=== PATIENT | male | born 1995 | race Caucasian/White ===

== ENCOUNTER 2018-06-10 08:52 | Emergency (ER) | payer SELFPAY ==
[2018-06-10 09:08] VITALS: BP 129/73
--- NOTE | 2018-06-10 11:06 | Emergency Department Report ---
ED Rash HPI - HPI Chief Complaint: Pain General Stated Complaint: RIGHT FOOT PAIN and RASH Time Seen by Provider: 06/10/18 10:51 Duration: 3 weeks Location: Other (right foot) Suspected Cause: Unknown Rash Symptoms: Yes Peeling, No Itching, No Blistering Severity: mild ED Review of Systems ROS: Stated complaint: RIGHT FOOT PAIN Other details as noted in HPI Comment: All other systems reviewed and negative Musculoskeletal: arthralgia Skin: rash, change in color ED Past Medical Hx - Past Medical History Previous Medical History?: No - Surgical History Past Surgical History?: No - Social History Smoking Status: Never Smoker Substance Use Type: None - Medications Home Medications: Home Medications Medication Instructions Recorded Confirmed Last Taken Type Butenafine HCl [Lotrimin Ultra] 1 applicatio TP BID #12 g 06/10/18 Unknown Rx Rash Exam - Exam General: Vital signs noted. No distress. Alert and acting appropriately. HEENT: No Periorbital Edema, No Conjuctival Injection, No Chemosis, No Perioral Edema, No Tongue Edema, No Uvular Edema, No Compromised Airway, No Drooling Lungs: Yes Good Air Exchange (Normal Breath Sounds), No Wheezes, No Ronchi, No Stridor, No Cough, No Labored Respirations, No Retractions, No Use of Accessory Muscles, No Other Abnormal Lung Sounds Heart: Yes Regular Skin: Yes Other (dark, linear area of hyperpigmentation across right 2nd and 3rd toes w/ peeling of skin present; no swelling/erythema/purulence noted; cap refill nml, color nml, sensory nml, DP pulse nml) Other: Positive: Neurologic Normal. Negative: Musculoskeletal Normal (mild tenderness to right 2nd toe,no swelling present) ED Course Vital Signs 06/10/18 09:04 Temperature 98.1 F Pulse Rate 73 Blood Pressure 129/73 ED Medical Decision Making - Medical Decision Making 23 yo M w/ tinea pedis x 3 wks. Will give rx for topical cream and info for outpt follow-up. - Differential Diagnosis Tinea pedis Critical care attestation.: If time is entered above; I have spent that time in minutes in the direct care of this critically ill patient, excluding procedure time. ED Disposition Clinical Impression: Tinea pedis, right Disposition: [id number] TO HOME OR SELFCARE Is pt being admited?: No Condition: Stable Instructions: Tinea Pedis (ED) Prescriptions: Butenafine HCl [Lotrimin Ultra] 1 applicatio TP BID #12 g Referrals: PRIMARY CARE, [Primary Care Provider] - 3-5 Days [facility] [Outside] - 3-5 Days [facility] [Provider Group] - 3-5 Days YENNY IZAGUIRRE DPM [Referring] - 3-5 Days RANDY LY DPM [Staff Physician] - 3-5 Days Time of Disposition: 11:12
== END 2018-06-10 11:22 | disposition home or self-care (01) ==
LOC: ED 08:52
DX: B35.3 Tinea pedis (principal)
CPT/HCPCS: 99282